=== PATIENT | male | born 1965 | race Caucasian/White ===

== ENCOUNTER 2019-03-23 10:48 | Day surgery (SDC) | payer OTHER ==
[2019-03-23] MEDS ORDERED: Ketamine HCl 50 MG/ML IV ONE (10:49)
[2019-03-23] MEDS ORDERED: XYLOCAINE 1% HCL 20 ML MDV IJ ONE (10:49)
[2019-03-23] MEDS ORDERED: Depo-Medrol 40 MG/ML IM ONE (10:49)
[2019-03-23] MEDS ORDERED: Sodium Chloride 0.9(Preservative Free) 10 ML IJ ONE (10:49)
[2019-03-23] MEDS ORDERED: Xylocaine 1% Vial 30 ML PF IJ ONE (10:49)
[2019-03-23] MEDS ORDERED: DIPRIVAN 200 MG/20 ML IV ONE (10:49)
[2019-03-23] MEDS ORDERED: Lactated Ringers 1,000 ML IV ONE (13:48)
--- NOTE | 2019-03-23 13:53 | XRAY ---
16 seconds fluoroscopy time in surgery for left L4-S1 NICOLETTE.
--- NOTE | 2019-03-23 13:54 | XRAY ---
Indication: Left L4-S1 NICOLETTE. Intraoperative fluoroscopy was provided for 16 seconds. 2 digital spot images submitted for interpretation demonstrates posterior needle tips projecting over the expected course of the left L4-L5 nerve roots. Small amount of contrast injected for needle tip placement. Correlate with intraoperative findings/report.
== END 2019-03-23 12:12 | disposition home or self-care (01) ==
LOC: SDC-PAIN 10:48
PROVIDERS: ATTEND Psychiatry & Neurology Pain Medicine
DX: M54.16 Radiculopathy, lumbar region (principal); I10 Essential (primary) hypertension; J44.9 Chronic obstructive pulmonary disease, unspecified; I25.10 Atherosclerotic heart disease of native coronary artery without angina pectoris; Z79.899 Other long term (current) drug therapy
CPT/HCPCS: 64483; 64484; 72020; 77002; J1030; J2001; J2704; Q9966

== ENCOUNTER 2019-04-27 12:01 | Day surgery (SDC) | payer OTHER ==
[2019-04-27] MEDS ORDERED: Sodium Chloride 0.9(Preservative Free) 10 ML IJ ONE (12:02)
[2019-04-27] MEDS ORDERED: DIPRIVAN 200 MG/20 ML IV ONE (12:02)
[2019-04-27] MEDS ORDERED: Depo-Medrol 40 MG/ML IM ONE (12:02)
--- NOTE | 2019-04-27 16:09 | XRAY ---
Indication: Right L4-S1 NICOLETTE. Intraoperative fluoroscopy was provided for 24 seconds. Single digital spot image submitted for interpretation demonstrates posterior needle tip projecting over the expected course of the right L5 nerve root. Small amount of contrast injected for needle tip placement. Correlate with intraoperative findings/report.
--- NOTE | 2019-04-27 16:36 | XRAY ---
24 seconds fluoroscopy time in surgery for right L4-S1 NICOLETTE.
[2019-04-27] MEDS ORDERED: Lactated Ringers 1,000 ML IV ONE (17:04)
== END 2019-04-27 15:20 | disposition home or self-care (01) ==
LOC: SDC-PAIN 12:01
PROVIDERS: ATTEND Psychiatry & Neurology Pain Medicine
DX: M54.16 Radiculopathy, lumbar region (principal); I10 Essential (primary) hypertension; J44.9 Chronic obstructive pulmonary disease, unspecified; I25.10 Atherosclerotic heart disease of native coronary artery without angina pectoris
CPT/HCPCS: 72020; 77003; J1030; J2704

== ENCOUNTER 2020-05-23 12:21 | Day surgery (SDC) | payer OTHER ==
[~2020-05-23 12:21] MED LIST: DIPRIVAN 200 MG/20 ML IV ONE; Ketamine HCl 50 MG/ML ONE
[2020-05-23] MEDS ORDERED: Depo-Medrol 40 MG/ML IM ONE (12:22)
[2020-05-23] MEDS ORDERED: Sodium Chloride 0.9(Preservative Free) 10 ML IJ ONE (12:22)
--- NOTE | 2020-05-23 14:52 | XRAY ---
Indication: Right L4-S1 transforaminal NICOLETTE. Intraoperative fluoroscopy was provided for 38 seconds. 3 digital spot images submitted for interpretation demonstrates posterior needle tips projecting over the expected course of the right L4 and L5 nerve roots. Small amount of contrast injected for needle tip placement. Correlate with intraoperative findings/report.
--- NOTE | 2020-05-23 15:04 | XRAY ---
38 seconds fluoroscopy time in surgery for right L4-S1 transforaminal NICOLETTE.
[2020-05-23] MEDS ORDERED: Lactated Ringers 1,000 ML IV ONE (15:57)
== END 2020-05-23 14:16 | disposition home or self-care (01) ==
LOC: SDC-PAIN 12:21
PROVIDERS: ATTEND Psychiatry & Neurology Pain Medicine
DX: M54.16 Radiculopathy, lumbar region (principal); J44.9 Chronic obstructive pulmonary disease, unspecified; I10 Essential (primary) hypertension; I25.10 Atherosclerotic heart disease of native coronary artery without angina pectoris; Z79.899 Other long term (current) drug therapy
CPT/HCPCS: 64483; 64484; 72100; 77003; J1030; J2704; Q9966

== ENCOUNTER 2021-04-17 10:03 | Day surgery (SDC) | payer OTHER ==
[2021-04-17] MEDS ORDERED: Depo-Medrol 40 MG/ML IM ONE (10:04)
[2021-04-17] MEDS ORDERED: Sodium Chloride 0.9(Preservative Free) 10 ML IJ ONE (10:04)
--- NOTE | 2021-04-17 12:07 | XRAY ---
25 seconds fluoroscopy time in surgery for right L3-L5 transforaminal NICOLETTE.
--- NOTE | 2021-04-17 12:10 | XRAY ---
Indication: Right L3-L5 transforaminal NICOLETTE. Intraoperative fluoroscopy provided for 25 seconds. 3 digital spot images submitted for interpretation demonstrates posterior needle tips projecting over the expected right L3 and L4 nerve roots. Small amount of contrast injected for needle tip placement. Correlate with intraoperative findings/report.
[2021-04-17] MEDS ORDERED: Lactated Ringers 1,000 ML IV ONE (15:56)
== END 2021-04-17 11:40 | disposition home or self-care (01) ==
LOC: SDC-PAIN 10:03
PROVIDERS: ATTEND Psychiatry & Neurology Pain Medicine
DX: M54.16 Radiculopathy, lumbar region (principal); F32.9 Major depressive disorder, single episode, unspecified; Z95.1 Presence of aortocoronary bypass graft; M19.90 Unspecified osteoarthritis, unspecified site; I10 Essential (primary) hypertension; I25.10 Atherosclerotic heart disease of native coronary artery without angina pectoris; J44.9 Chronic obstructive pulmonary disease, unspecified; Z79.899 Other long term (current) drug therapy
CPT/HCPCS: 64483; 64484; 72100; 77003; J1030; Q9966

== ENCOUNTER 2021-07-17 14:32 | Day surgery (SDC) | payer OTHER ==
[2021-07-17] MEDS ORDERED: Depo-Medrol 40 MG/ML IM ONE (14:33)
[2021-07-17] MEDS ORDERED: Sodium Chloride 0.9(Preservative Free) 10 ML IJ ONE (14:33)
[2021-07-17] MEDS ORDERED: Lactated Ringers 1,000 ML IV ONE (16:41)
[2021-07-17] MEDS ORDERED: DIPRIVAN 200 MG/20 ML IV ONE (16:52)
--- NOTE | 2021-07-17 20:29 | XRAY ---
Indication: Left L4-S1 transforaminal NICOLETTE. Intraoperative fluoroscopy provided for 53 seconds. 4 digital spot image submitted for interpretation demonstrates posterior needle tips projecting over the expected left L4 and L5 nerve roots. Small amount of contrast injected for needle tip placement. Correlate with intraoperative findings/report.
--- NOTE | 2021-07-17 21:44 | XRAY ---
53 seconds of fluoroscopy was used in surgery for a left L4-S1 transforaminal NICOLETTE.
== END 2021-07-17 17:23 | disposition home or self-care (01) ==
LOC: SDC-PAIN 14:32
PROVIDERS: ATTEND Psychiatry & Neurology Pain Medicine
DX: M54.16 Radiculopathy, lumbar region (principal); Z79.899 Other long term (current) drug therapy
CPT/HCPCS: 64483; 64484; 72100; 77003; J1030; J2704; Q9966

== ENCOUNTER 2021-12-11 13:38 | Day surgery (SDC) | payer OTHER ==
[2021-12-11] MEDS ORDERED: Sodium Chloride 0.9% 10 ML FLUSH Syringe IJ ONE (13:39)
[2021-12-11] MEDS ORDERED: Depo-Medrol 40 MG/ML IM ONE (13:39)
[2021-12-11] MEDS ORDERED: DIPRIVAN 200 MG/20 ML IV ONE (17:15)
[2021-12-11] MEDS ORDERED: Lactated Ringers 1,000 ML IV ONE (17:25)
[2021-12-11] MEDS ORDERED: MORPHINE SULFATE 2 MG INJ ONE (17:38)
--- NOTE | 2021-12-11 19:07 | XRAY ---
Indication: Left L4-S1 transforaminal NICOLETTE. Intraoperative fluoroscopy provided for 1 minute 24 seconds. 3 digital spot image submitted for interpretation demonstrates posterior needle tips projecting over the left L4 and L5 nerve roots. Small amount of contrast injected for needle tip placement. Correlate with intraoperative findings/report.
--- NOTE | 2021-12-12 09:23 | XRAY ---
1 minute and 24 seconds fluoroscopy time in surgery for L4-S1 transforaminal NICOLETTE.
== END 2021-12-11 17:50 | disposition home or self-care (01) ==
LOC: SDC-PAIN 13:38
PROVIDERS: ATTEND Psychiatry & Neurology Pain Medicine
DX: M54.16 Radiculopathy, lumbar region (principal); I10 Essential (primary) hypertension; Z79.899 Other long term (current) drug therapy
CPT/HCPCS: 64483; 64484; 72100; 77003; J1030; J2270; J2704; Q9966

== ENCOUNTER 2023-01-28 12:44 | Day surgery (SDC) | payer OTHER ==
[2023-01-28] MEDS ORDERED: Sodium Chloride 0.9(Preservative Free) 10 ML IJ ONE (12:45)
[2023-01-28] MEDS ORDERED: Depo-Medrol 40 MG/ML IM ONE (12:45)
[2023-01-28] MEDS ORDERED: DIPRIVAN 200 MG/20 ML IV ONE (14:45)
[2023-01-28] MEDS ORDERED: Lactated Ringers 1,000 ML IV ONE (15:32)
--- NOTE | 2023-01-28 16:33 | XRAY ---
Indication: Left L4-S1 transforaminal NICOLETTE. Intraoperative fluoroscopy provided for 42 seconds. 3 digital spot image submitted for interpretation demonstrates posterior needle tips projecting over the expected left L4 and L5 nerve roots. Small amount of contrast injected for needle tip placement. Correlate with intraoperative findings/report.
--- NOTE | 2023-01-28 16:50 | XRAY ---
42 seconds of fluoroscopy was used in surgery for a left L4-S1 transforaminal NICOLETTE.
== END 2023-01-28 15:30 | disposition home or self-care (01) ==
LOC: SDC-PAIN 12:44
PROVIDERS: ATTEND Psychiatry & Neurology Pain Medicine
DX: M54.16 Radiculopathy, lumbar region (principal); Z79.899 Other long term (current) drug therapy
CPT/HCPCS: 64483; 64484; 72100; 77003; J1030; J2704; Q9966

== ENCOUNTER 2023-12-23 11:08 | Day surgery (SDC) | payer OTHER ==
[2023-12-23] MEDS ORDERED: Decadron 4 MG INJ IV ONE (11:09)
[2023-12-23] MEDS ORDERED: Sodium Chloride 0.9(Preservative Free) 10 ML IJ ONE (11:09)
[2023-12-23] MEDS ORDERED: XYLOCAINE-MPF 1% 5ML SDV IJ ONE (11:09)
[2023-12-23] MEDS ORDERED: DIPRIVAN 200 MG/20 ML IV ONE (13:15)
[2023-12-23] MEDS ORDERED: BENADRYL 50 MG/ML ONE (13:18)
[2023-12-23] MEDS ORDERED: Lactated Ringers 1,000 ML IV ONE (13:41)
--- NOTE | 2023-12-23 17:03 | XRAY ---
Indication: Left L4-S1 transforaminal NICOLETTE. Intraoperative fluoroscopy provided for 25 seconds. 5 digital spot images submitted for interpretation demonstrates posterior needle tips projecting over left L4 and L5 nerve roots. Small amount of contrast injected for needle tip placement. Correlate with intraoperative findings/report.
--- NOTE | 2023-12-23 17:07 | XRAY ---
Indication: Left piriformis injection. Intraoperative fluoroscopy provided for 14 seconds. Single digital spot image submitted for interpretation demonstrates posterior needle tip projecting over left piriformis. Small amount of contrast injected for needle tip placement. Correlate with intraoperative findings/report.
--- NOTE | 2023-12-23 17:41 | XRAY ---
25 seconds of fluoroscopy was used in surgery for a left L4-S1 transforaminal NICOLETTE.
--- NOTE | 2023-12-23 17:41 | XRAY ---
14 seconds of fluoroscopy was used in surgery for a left piriformis injection.
== END 2023-12-23 13:50 | disposition home or self-care (01) ==
LOC: SDC-PAIN 11:08
PROVIDERS: ATTEND Psychiatry & Neurology Pain Medicine
DX: M54.16 Radiculopathy, lumbar region (principal); M79.18 Myalgia, other site
CPT/HCPCS: 20552; 64483; 64484; 72100; 72170; 77002; 77003; J1100; J1200; J2704; Q9966

== ENCOUNTER 2024-03-09 12:29 | Day surgery (SDC) | payer OTHER ==
[2024-03-09] MEDS ORDERED: Sodium Chloride 0.9(Preservative Free) 10 ML IJ ONE (12:30)
[2024-03-09] MEDS ORDERED: LIDOCAINE HCL 1% 50 MG/5 ML VL PF IJ ONE (12:30)
[2024-03-09] MEDS ORDERED: Depo-Medrol 40 MG/ML IM ONE (12:30)
[2024-03-09] MEDS ORDERED: DIPRIVAN 200 MG/20 ML IV ONE (14:32)
[2024-03-09] MEDS ORDERED: Xylocaine-Mpf 2% 5 Ml Vial ONE (14:37)
[2024-03-09] MEDS ORDERED: Lactated Ringers 1,000 ML IV ONE (14:57)
[2024-03-09] MEDS ORDERED: DEXMEDETOMIDINE 80 MCG/20ML-NS IV ONE (15:08)
[2024-03-09] MEDS ORDERED: Versed 2 MG/2 ML Injection ONE (15:14)
--- NOTE | 2024-03-09 16:44 | XRAY ---
Indication: Lumbar NICOLETTE. Intraoperative fluoroscopy provided for 26 seconds. 3 digital spot image submitted for interpretation demonstrates posterior needle tip projecting just posterior to lumbosacral junction interspace. Small amount of contrast injected for needle tip placement. Correlate with intraoperative findings/report.
--- NOTE | 2024-03-10 08:57 | XRAY ---
26 seconds of fluoroscopy was used in surgery for a lumbar NICOLETTE.
== END 2024-03-09 15:49 | disposition home or self-care (01) ==
LOC: SDC-PAIN 12:29
PROVIDERS: ATTEND Psychiatry & Neurology Pain Medicine
DX: M54.16 Radiculopathy, lumbar region (principal)
CPT/HCPCS: 62323; 72100; 77003; J1010; J2001; J2250; J2704